=== PATIENT | male | born 1995 | race Caucasian/White ===

== ENCOUNTER 2020-05-11 16:11 | Emergency (ER) | payer BC, SELFPAY ==
[2020-05-11 16:14] VITALS: BP 148/68; PULSE 94; RESP 16; TEMP 37.9; O2SAT 99
--- NOTE | 2020-05-11 16:15 | DI.RAD_ITS ---
EXAM: XR SHOULDER LT COMPLETE 2+V CLINICAL HISTORY: r/o shoulder fx/AC joint separation. TECHNIQUE: 2D digital imaging was performed. COMPARISON: No exams were available for comparison FINDINGS: There is a left acromioclavicular separation. There is elevation of the left clavicle relative to th e acromion. No acute fracture is identified. The soft tissues are unremarkable. IMPRESSION: Left AC joint separation. No acute fracture. DATA REPOSITORY: RADIATION DOSE DELIVERED:
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
[2020-05-11] MEDS: Ibuprofen 100 MG/5 ML CUP 600 MG PO (16:30)
--- NOTE | 2020-05-11 17:03 | DI.VRAD_ITS ---
PROCEDURE INFORMATION: Exam: XR Left Shoulder Exam date and time: 05/11/2020 4:39 PM Age: 24 years old Clinical indication: Pain; Left; Patient HX: Fall on to L shoulder; R/O FX or ac separation TECHNIQUE: Imaging protocol: XR Left shoulder. Views: 2 or more views. COMPARISON: No relevant prior studies available. FINDINGS: Bones/joints: Left AC separation, with mild elevation of the left clavicle. Coracoclavicular distance appears maintained. No acute fracture identified. Soft tissues: Normal. IMPRESSION: Left AC separation. Dictated and Authenticated by: Bob Reed MD. Ordering:CARMELINA Quintana MD
[2020-05-11 17:20] VITALS: BP 138/68; PULSE 76; RESP 12; TEMP 37.4; O2SAT 99
== END 2020-05-11 17:28 | disposition home or self-care (01) ==
LOC: ER 17:39
PROVIDERS: Emergency Provider Physician Assistant
DX: S43.122A Dislocation of left acromioclavicular joint, 100%-200% displacement, initial encounter (principal); V18.0XXA Pedal cycle driver injured in noncollision transport accident in nontraffic accident, initial encounter; Y93.55 Activity, bike riding
CPT/HCPCS: 23540; 73030; L3650